=== PATIENT | female | born 1990 | race Caucasian/White ===

== ENCOUNTER 2025-06-13 14:21 | Outpatient (CLI) | payer OTHER ==
[2025-06-13 15:04] VITALS: BP 126/76
== END 2025-06-13 15:44 | disposition home or self-care (01) ==
LOC: NST 14:21
PROVIDERS: ATTEND Obstetrics & Gynecology
DX: Z34.83 Encounter for supervision of other normal pregnancy, third trimester (principal)

== ENCOUNTER 2025-06-22 13:13 | Outpatient (CLI) | payer OTHER | END 2025-06-22 13:19 | disposition home or self-care (01) | LOC: NST 13:13 | PROVIDERS: ATTEND Obstetrics & Gynecology Maternal & Fetal Medicine | DX: Z34.83 Encounter for supervision of other normal pregnancy, third trimester (principal) ==

== ENCOUNTER 2025-06-29 13:48 | Outpatient (CLI) | payer OTHER | END 2025-06-29 14:54 | disposition home or self-care (01) | LOC: NST 13:48 | PROVIDERS: ATTEND Obstetrics & Gynecology | DX: Z34.83 Encounter for supervision of other normal pregnancy, third trimester (principal) ==

== ENCOUNTER 2025-07-04 15:00 | Outpatient (CLI) | payer OTHER | END 2025-07-04 15:35 | disposition home or self-care (01) | LOC: NST 15:00 | PROVIDERS: ATTEND Obstetrics & Gynecology Maternal & Fetal Medicine | DX: Z34.83 Encounter for supervision of other normal pregnancy, third trimester (principal) ==

== ENCOUNTER 2025-07-10 13:42 | Outpatient (CLI) | payer OTHER | END 2025-07-10 14:56 | disposition home or self-care (01) | LOC: NST 13:42 | PROVIDERS: ATTEND Obstetrics & Gynecology Gynecology | DX: Z34.83 Encounter for supervision of other normal pregnancy, third trimester (principal) ==

== ENCOUNTER 2025-07-17 12:56 | Outpatient (CLI) | payer OTHER | END 2025-07-17 13:40 | disposition home or self-care (01) | LOC: NST 12:56 | PROVIDERS: ATTEND Obstetrics & Gynecology | DX: Z34.83 Encounter for supervision of other normal pregnancy, third trimester (principal) ==

== ENCOUNTER 2025-07-20 11:28 | Outpatient (CLI) | payer OTHER | END 2025-07-20 11:59 | disposition home or self-care (01) | LOC: NST 11:28 | PROVIDERS: ATTEND Obstetrics & Gynecology Maternal & Fetal Medicine | DX: Z34.83 Encounter for supervision of other normal pregnancy, third trimester (principal) ==

== ENCOUNTER 2025-07-24 08:59 | Outpatient (CLI) | payer OTHER | END 2025-07-24 09:58 | disposition home or self-care (01) | LOC: NST 08:59 | PROVIDERS: ATTEND Obstetrics & Gynecology | DX: Z34.83 Encounter for supervision of other normal pregnancy, third trimester (principal) ==

== ENCOUNTER 2025-07-24 13:02 | Inpatient (IN) | payer OTHER ==
[~2025-07-24] VITALS: Ht 167.6 cm; Wt 81.6 kg
[2025-08-01 20:15] VITALS: BP 129/86; O2SAT 98
[2025-08-01] MEDS ORDERED: RINGERS SOLUTION,LACTATED 1,000 ML IV SCH (20:45)
[2025-08-01 21:09] LABS: BASO % 0.4 % (0.1-1.2); EOS # 0.10 (0.04-0.54); EOS % 1.4 % (0.7-7.0); LYMPH # 2.79 (1.18-3.74); LYMPH % 39.2 % (19.3-53.1); MEAN PLATELET VOLUME 8.80 fl (9.4-12.4); MONO # 1.51 (0.24-0.82); NEUT # 2.55 (1.56-6.13); NEUT % 35.8 % (34.0-71.1); RED CELL DISTRIBUTION WIDTH 12.4 % (11.6-14.4)
[2025-08-01] MEDS ORDERED: NIFEDIPINE20 MG PO (21:35)
[2025-08-01] MEDS ORDERED: PRENATAL TABLE1 EAC1 PO (21:36)
[2025-08-01] MEDS ORDERED: CHILDREN'S ASPI81 MG PO (21:36)
[2025-08-01] MEDS ORDERED: ZYRTEC10 M3 PO (21:36)
[2025-08-01 21:41] LABS: INR 0.95
[2025-08-01 21:46] LABS: ALT/SGPT 39.0 U/L (12-78); AST/SGOT 30.0 U/L (15-37); BILIRUBIN TOTAL 0.27 mg/dL (0.3-1.2); BUN CREA RATIO 27.0 (7.0-25.0); CREATININE SERUM 0.52 mg/dL (0.55-1.02); GFR 132.69; GLOBULINA 3.3 G/DL (2.4-3.5); GLUCOSE FASTING 79.0 mg/dL (65-100); OSMOLALITY SERUM 279.0 MOSM/KG (275-295)
[2025-08-01 22:04] LABS: BAND MAN 1.0 %; EOSINOPHIL MAN 1.0 %; LYMPHOCYTE MAN 38.0 %; MONO % 21.2 % (4.7-12.5); MONOCYTE MAN 24.0 %; NEUTROPHILS MAN 34.0 %
[2025-08-01 23:26] VITALS: BP 110/70
[2025-08-02 04:57] VITALS: BP 112/73
[2025-08-02 08:06] VITALS: BP 139/79
[2025-08-02] MEDS ORDERED: OXYTOCIN 1,000 ML IV ONE (08:15)
[2025-08-02] MEDS ORDERED: OXYTOCIN 20 UNITS/500ML RL PIGGYBAG IV ONE (08:46)
[2025-08-02] MEDS ORDERED: OXYTOCIN 500 ML IV ONE (09:30)
[2025-08-02] MEDS ORDERED: ONDANSETRON HCL 2 MG/ML VIAL IV ONE (14:30)
[2025-08-02 15:32] VITALS: BP 142/85; O2SAT 100
[2025-08-02] MEDS ORDERED: CHLORHEXIDINE GLUCONATE 120 ML BOTTLE TOP ONE ×2 (16:34→18:00)
[2025-08-02] MEDS ORDERED: LIDOCAINE HCL 1% 10ML VIAL ONE (16:34)
[2025-08-02] MEDS ORDERED: ERYTHROMYCIN BASE OPHT 1GM EACH TUBE OP ONE (16:34)
[2025-08-02] MEDS ORDERED: OXYTOCIN 20 UNITS/1000ML RL PIGGYBAG IV ONE (16:34)
[2025-08-02] MEDS ORDERED: OXYTOCIN 1,000 ML IV SCH (18:00)
[2025-08-02 20:02] VITALS: BP 130/80
[2025-08-03 00:10] VITALS: BP 125/73
[2025-08-03 07:10] LABS: BASO % 0.2 % (0.1-1.2); EOS # 0.03 (0.04-0.54); EOS % 0.2 % (0.7-7.0); LYMPH # 2.48 (1.18-3.74); LYMPH % 19.5 % (19.3-53.1); MEAN PLATELET VOLUME 9.00 fl (9.4-12.4); MONO # 2.26 (0.24-0.82); NEUT # 7.64 (1.56-6.13); NEUT % 60.2 % (34.0-71.1); RED CELL DISTRIBUTION WIDTH 12.3 % (11.6-14.4)
[2025-08-03 07:12] LABS: MONO % 17.8 % (4.7-12.5)
[2025-08-03 08:00] VITALS: BP 135/76
[2025-08-03 18:14] VITALS: BP 104/68
[2025-08-04] VITALS: BP 105/63
[2025-08-04 08:47] VITALS: BP 116/77
== END 2025-08-04 13:29 | disposition home or self-care (01) | DRG 807 ==
LOC: LDR 08-01 19:57 → OB/GYN 08-02 18:05 → LDR 08-16 13:01
PROVIDERS: ADMIT Obstetrics & Gynecology; ATTEND Obstetrics & Gynecology
PROC: 4A1HXCZ Monitoring of Products of Conception, Cardiac Rate, External Approach (ICD-10-PCS; 2025-08-01)
PROC: 10E0XZZ Delivery of Products of Conception, External Approach (ICD-10-PCS; principal; 2025-08-02)
PROC: 0UQMXZZ Repair Vulva, External Approach (ICD-10-PCS; 2025-08-02)
DX: O70.0 First degree perineal laceration during delivery (principal); Z37.0 Single live birth; Z3A.38 38 weeks gestation of pregnancy